=== PATIENT | female | born 2000 | race African-American/Black ===

== ENCOUNTER 2022-05-30 12:46 | Inpatient (IN) | payer MEDICAID, OTHER ==
[~2022-05-30] VITALS: Ht 172.7 cm; Wt 93.1 kg
[2022-05-30 13:55] LABS: COVID AG,FIA SOURCE NASOPHARYNGEAL
[2022-05-30 13:56] LABS: BASOPHILS % (AUTO) 0.5 % (0.0-2.0); EOSINOPHILS % (AUTO) 3.2 % (1.0-6.0); HEMATOCRIT 44.1 % (36-46); HEMOGLOBIN 14.2 g/dL (12.0-16.0); LYMPHOCYTES # (AUTO) 2.4 K/uL (1.0-4.8); LYMPHOCYTES % (AUTO) 42.6 % (22.0-44.0); MEAN CORPUSCULAR HEMOGLOBIN 28.7 pg (26.0-34.0); MEAN CORPUSCULAR HGB CONC 32.2 G/dL (31.0-37.0); MEAN CORPUSCULAR VOLUME 89 fL (80-100); MONOCYTES # (AUTO) 0.4 K/uL (0.1-1.0); MONOCYTES % (AUTO) 6.4 % (2.0-9.0); NEUTROPHILS # (AUTO) 2.6 K/uL (1.8-7.7); NEUTROPHILS % (AUTO) 47.3 % (40.0-70.0); PLATELET COUNT (AUTO) 130 K/uL (150-450); RED BLOOD CELL COUNT(AUTO) 4.93 MIL/uL (4.00-5.20)
[2022-05-30 14:13] LABS: ANION GAP 6 mmol/L (8-16); CALCIUM, TOTAL 9.3 mg/dL (8.8-10.5); CARBON DIOXIDE 25 mmol/L (22-29); CHLORIDE 107 mmol/L (98-107); CREATININE 1.05 mg/dL (0.60-1.30); GLOMERULAR FILTR. RATE CALC > 60 mL/min (>60); GLUCOSE,RANDOM 93 mg/dL (70-110); POTASSIUM 3.8 mmol/L (3.5-5.1); SODIUM SERUM 138 mmol/L (136-145); UREA NITROGEN, BLOOD 8 mg/dL (7-18)
[2022-05-30 14:24] LABS: ALANINE AMINOTRANSFERASE 18 U/L (12-78); ALBUMIN 3.3 g/dL (3.4-5.0); ALKALINE PHOSPHATASE 88 U/L (46-116); ASPARTATE AMINOTRANSFERASE 19 U/L (15-37); BILIRUBIN,TOTAL 0.6 mg/dL (0.1-1.0); HCG,QUANTITATIVE < 1 mIU/mL (0-6); TOTAL PROTEIN, SERUM 6.6 g/dL (6.4-8.2)
[2022-05-30 15:49] LABS: AMPHET/METH SCREEN,URINE NEGATIVE (NEGATIVE); BARBITURATE SCREEN, URINE NEGATIVE (NEGATIVE); BENZODIAZEPINES SCREEN,URINE NEGATIVE (NEGATIVE); CANNABINOID SCREEN,URINE POSITIVE (NEGATIVE); COCAINE SCREEN,URINE NEGATIVE (NEGATIVE); METHADONE SCREEN, URINE NEGATIVE (NEGATIVE); OPIATE SCREEN,URINE NEGATIVE (NEGATIVE); PHENCYCLIDINE SCREEN,URINE NEGATIVE (NEGATIVE)
[2022-05-30] MEDS ORDERED: HALOPERIDOL 5 MG TABLET PO PRN (17:30)
[2022-05-30] MEDS ORDERED: LORazepam 2 MG TABLET PO PRN (17:30)
[2022-05-30] MEDS ORDERED: ZOLPIDEM TARTRATE 10 MG TABLET PO PRN (17:30)
[2022-05-30 18:46] VITALS: BP 144/60
[2022-05-31 08:00] VITALS: BP 96/55
[2022-05-31] MEDS ORDERED: IBUPROFEN 600 MG TABLET PO PRN (09:00)
[2022-05-31] MEDS ORDERED: BENZOCAINE/MENTHOL LOZENGE PO PRN (09:00)
[2022-05-31] MEDS ORDERED: ACETAMINOPHEN 325 MG TABLET PO PRN (09:00)
[2022-05-31] MEDS ORDERED: BACITRACIN 28 GM OINTMENT TP PRN (09:00)
[2022-05-31] MEDS ORDERED: MAGNESIUM HYDROXIDE SUSPENSION 30 ML UDCUP PO PRN (09:00)
[2022-05-31] MEDS ORDERED: ONDANSETRON HCL 4 MG TABLET PO PRN (09:00)
[2022-05-31] MEDS ORDERED: DOCUSATE SODIUM 100 MG CAPSULE PO PRN (09:00)
[2022-05-31] MEDS ORDERED: MAG HYDROX/AL HYDROX/SIMETH ES 30 ML SUSPENSION UDCUP PO PRN (09:00)
[2022-05-31] MEDS ORDERED: LOPERAMIDE HCL 2 MG CAPSULE PO PRN (09:00)
[2022-05-31] MEDS ORDERED: CloNIDine HCL 0.1 MG TABLET PO PRN (09:00)
[2022-05-31] MEDS ORDERED: ALBUTEROL SULFATE HFA 90 MCG/PUFF 8 GM INHALER IH PRN (09:00)
[2022-05-31] MEDS ORDERED: PETROLATUM,WHITE 28 GM JELLY TP PRN (09:00)
[2022-05-31] MEDS ORDERED: OMEPRAZOLE 20 MG CAPSULE PO PRN (09:00)
[2022-05-31] MEDS: NYSTATIN 30 GM CREAM TP SCH (22:36)
[2022-06-01 08:00] VITALS: BP 100/65
[2022-06-01] MEDS: NYSTATIN 30 GM CREAM TP SCH ×2 (08:55→16:53)
[2022-06-01] MEDS: ARIPiprazole 15 MG TABLET PO SCH (08:55)
[2022-06-01] MEDS: DIVALPROEX SODIUM 500 MG DR TABLET PO SCH ×3 (08:55→17:00)
[2022-06-01] MEDS: LITHIUM CARBONATE 300 MG CAPSULE PO SCH ×3 (08:55→17:00)
[2022-06-01 16:00] VITALS: BP 106/69
[2022-06-02 09:18] VITALS: BP 101/60
[2022-06-02] MEDS: NYSTATIN 30 GM CREAM TP SCH ×2 (09:21→16:14)
[2022-06-02] MEDS: DIVALPROEX SODIUM 500 MG DR TABLET PO SCH ×2 (09:21→16:14)
[2022-06-02] MEDS: LITHIUM CARBONATE 300 MG CAPSULE PO SCH ×2 (09:21→16:14)
[2022-06-02] MEDS: ARIPiprazole 15 MG TABLET PO SCH (09:21)
[2022-06-02 17:05] VITALS: BP 117/64
[2022-06-02 21:43] VITALS: BP 107/77
[2022-06-03 08:00] VITALS: BP 118/77
[2022-06-03] MEDS: DIVALPROEX SODIUM 500 MG DR TABLET PO SCH (09:48)
[2022-06-03] MEDS: LITHIUM CARBONATE 300 MG CAPSULE PO SCH (09:48)
[2022-06-03] MEDS: NYSTATIN 30 GM CREAM TP SCH (09:48)
[2022-06-03] MEDS: ARIPiprazole 15 MG TABLET PO SCH (09:48)
[2022-06-03] MEDS ORDERED: DIVA-112 PO (09:58)
[2022-06-03] MEDS ORDERED: ARIP15TA27 PO (09:58)
== END 2022-06-03 11:00 | disposition home or self-care (01) | DRG 750 ==
LOC: EMS 12:51 → 3EI 17:57
PROVIDERS: ADMIT Psychiatry & Neurology Psychiatry; ATTEND Psychiatry & Neurology Psychiatry
DX: F25.9 Schizoaffective disorder, unspecified (principal); D69.6 Thrombocytopenia, unspecified; R45.851 Suicidal ideations; F41.9 Anxiety disorder, unspecified; F32.A Depression, unspecified; K59.00 Constipation, unspecified; G47.00 Insomnia, unspecified; F12.90 Cannabis use, unspecified, uncomplicated; Z20.822 Contact with and (suspected) exposure to COVID-19; E66.9 Obesity, unspecified; Z56.0 Unemployment, unspecified; Z88.0 Allergy status to penicillin; Z79.899 Other long term (current) drug therapy; Z68.31 Body mass index [BMI] 31.0-31.9, adult; Z88.8 Allergy status to other drugs, medicaments and biological substances
CPT/HCPCS: 80053; 84702; 85025; 99285; G0480